=== PATIENT | female | born 1995 | race Two or more races ===

== ENCOUNTER 2018-07-23 18:04 | Emergency (ER) | payer SELFPAY ==
[~2018-07-23] VITALS: Ht 162.6 cm; Wt 65.8 kg
[2018-07-23 18:41] VITALS: BP 110/68
== END 2018-07-23 23:29 | disposition left against medical advice (07) ==
LOC: ER 18:23
DX: R11.2 Nausea with vomiting, unspecified (principal); M25.511 Pain in right shoulder; M25.512 Pain in left shoulder; R51 Headache; Z53.21 Procedure and treatment not carried out due to patient leaving prior to being seen by health care provider